=== PATIENT | male | born 1990 | race Caucasian/White ===

== ENCOUNTER 2023-09-07 21:54 | Emergency (ER) | payer BC, SELFPAY ==
[2023-09-07 21:55] VITALS: BP 150/108
--- NOTE | 2023-09-07 23:21 | ED.GENMED ---
History of Present Illness
<SARAVANAN Arzate - Last Filed: 09/07/23 23:30>
General
Chief Complaint: Ear Problem
Source: patient
Exam Limitations: none
Time Seen by Provider: 09/07/23 23:09
Travel History
Have you had any contact with someone who has COVID-19?: No
Do you have any symptoms of coronavirus? Fever > 100 degrees, chills, cough, shortness of breath, sore throat, loss of taste or smell, muscle aches, or headache?: No
History of Present Illness
History of Present Illness:
This is a 33 year old male that comes in with c/o right ear pain. States that he had a pimple in the outer ear and this continued to get worse. States that this started 4 days ago. Denies any fever,chills, nausea, vomiting, diarrhea, headache,
dizziness.
Past History
<SARAVANAN Arzate - Last Filed: 09/07/23 23:30>
Past History
ED Past Medical History: HTN and NIDDM
ED Past Surgical History: None
Social History
Tobacco: Non-smoker
Alcohol: None
Drug: None
Personal:
Living: with family
Review of Systems
<SARAVANAN Arzate - Last Filed: 09/07/23 23:30>
Review of Systems
All Other Systems: ROS reviewed and negative except as documented in HPI and ROS
Constitutional: Reports no symptoms; Denies fever or chills
EENT: Reports other (right ear pain)
Respiratory: Reports no symptoms
Cardiac: Reports no symptoms
ABD/GI: Reports no symptoms
: Reports no symptoms
Musculoskeletal: Reports no symptoms
Skin: Reports no symptoms
Neurological: Reports no symptoms; Denies dizzy or headache
Psychiatric: Reports no symptoms
Phy Exam
<SARAVANAN Arzate - Last Filed: 09/07/23 23:30>
General Physical Exam
General Presentation: well appearing and no apparent distress
General age: appears stated age
General Skin: warm and dry
General Habitus: normal
General Mental: alert
General Hydration: appears well hydrated
ENT Exam
ENT Exam: pharynx normal, neck supple and other (right external ear canal just at the opening there is a pimple like appears that is swollen and just about ready to open. )
Eye Exam
Eye Exam: EOMI
Musculoskeletal Exam
Musculoskeletal Exam: full ROM
Skin Exam
Skin Exam: normal color, warm/dry, no petechia and other (external ear slightly red)
Psychiatric Exam
Psychiatric Exam: normal mood/affect
Course
<SARAVANAN Arzate - Last Filed: 09/07/23 23:30>
Orders/Labs/Results
Orders:
Orders
09/07/23 23:20
Doxycycline [Vibramycin] 100 mg PO NOW STA
Vital Signs
Initial and Last Documented VS:
Initial Vital Signs
Temp Pulse Resp BP Pulse Ox
98 F 92 20 150/108 98
09/07/23 21:55 09/07/23 21:55 09/07/23 21:55 09/07/23 21:55 09/07/23 21:55
Last Documented Vital Signs
Temp Pulse Resp BP Pulse Ox
98 F 92 20 150/108 98
09/07/23 21:55 09/07/23 21:55 09/07/23 21:55 09/07/23 21:55 09/07/23 21:55
<Kelli Philippe DO - Last Filed: 09/07/23 23:33>
Orders/Labs/Results
Orders:
Orders
09/07/23 23:20
Doxycycline [Vibramycin] 100 mg PO NOW STA
Vital Signs
Initial and Last Documented VS:
Initial Vital Signs
Temp Pulse Resp BP Pulse Ox
98 F 92 20 150/108 98
09/07/23 21:55 09/07/23 21:55 09/07/23 21:55 09/07/23 21:55 09/07/23 21:55
Last Documented Vital Signs
Temp Pulse Resp BP Pulse Ox
98 F 92 20 150/108 98
09/07/23 21:55 09/07/23 21:55 09/07/23 21:55 09/07/23 21:55 09/07/23 21:55
<SARAVANAN Arzate - Last Filed: 09/07/23 23:30>
MDM/Problems Addressed
Differential Diagnosis Includes:
Otitis externa
MDM/Problems Addressed:
This is a 33 year old male that comes in with c/o a 4 day history of right ear pain. States that he had a pimple and this continue to get larger.
Will have patient use Warm compresses or a heating pad and will place on antibiotics. Patient to follow up with the PCP. Return with fever, redness or any other concerns.
Chronic conditions affecting care: DM
Acute Exacerbation and/or Progression of Chronic Illness:
NA
<SARAVANAN Arzate - Last Filed: 09/07/23 23:30>
*Pulse Oximetry
Patient hypoxic: no
*EKG
Interpreted by ED Provider?: NA
Rate: EKG- N/A
*Consumer Marketing Specialist Interpretation
Rate: Consumer Marketing Specialist- N/A
*Critical Care Note
Total Time (30-74mins, 75-104mins- exclusive of procedures): Not Applicable
ED Attending Note
<SARAVANAN Arzate - Last Filed: 09/07/23 23:30>
-
Portions of this chart may have been created with voice recognition software.� Occasional wrong word or��sound alike� substitutions may have occurred due to the inherent limitations of voice recognition software.
<Kelli Philippe DO - Last Filed: 09/07/23 23:33>
ED Attending Note
Patient seen and examined by attending physician: Yes
I performed the substantive portion of visit, reviewed & personally made and approve the management plan that is documented in note by myself or VENKAT.: Yes
I performed a history and physical exam of patient and discussed management with resident, I reviewed resident's note and agree with documented findings and plan of care.: Yes
ED Attending Note:
33-year-old gentleman presents with several day history of focal pain and swelling posterior/superior aspect of the right ear tragus. He does admit to frequent earbud wearing and had similar but less painful inflammation sometime ago that resolved
on its own.
He has history of [id number] diabetes maintained on metformin. Other than this no history of immunocompromise. No known prior history of MRSA infections.
Exam remarkable for focal skin abscess posterior superior aspect of the tragus that is focally erythematous, fluctuant, minimal central desquamation and scant drainage from central aspect. There is no surrounding cellulitis, external canal is
otherwise clear.
Focal skin abscess to outer external ear canal on the right likely related to ear buds. Will treat with a course of Bactrim for coverage of potential MRSA.
Abscess is already beginning to drain thus we will hold off on further incision and drainage and treat conservatively with local warm compresses.
Tylenol versus ibuprofen as needed for pain.
Return precautions discussed.
Discharge Plan
Departure
Patient Disposition: Home (Routine Discharge)
Date of Disposition: 09/07/23
Time of Disposition: 23:24
Patient with high blood pressure during this ER visit?: Yes
Condition: Good
Covid-19: Not Applicable
Discharge Problem:
Infection of right ear canal
Instructions: Outer Ear Infection (DC), BLOOD PRESSURE
Prescriptions:
New
doxycycline hyclate 100 mg capsule
100 mg PO BID Qty: 19 0RF
No Action
metformin
2 tab PO DAILY
Patient Comments:
Patient does not know the dose
lisinopril 20 mg Tablet
20 mg PO DAILY
clindamycin HCl 150 mg capsule
450 mg PO TID 10 Days Qty: 90 0RF
Activity Restrictions/Additional Instructions:
As discussed, this looks to be a pimple that became infected. It is just about ready to open. Please use warm compresses or a heating pad to the ear as this will help this to drain. You have been started on an antibiotic and give your first dose
here. You have had a prescription sent to your Pharmacy. Please take as directed. Please follow up with the family doctor for recheck. IF YOU HAVE INCREASED PAIN OR SWELLING, FEVER, OR YOU HAVE ANY OTHER CONCERNS PLEASE RETURN TO THE EMERGENCY ROOM
Interventions
Interventions:
*Risk Screen - Suicide Last Done: 09/07/23 21:55
*General Assessment Last Done: 09/07/23 23:23
*Neglect/Abuse Screening Last Done: 09/07/23 21:55
ED- Fall Risk Assessment Last Done: 09/07/23 23:23
*ED COVID-19 Vaccine History Last Done: 09/07/23 23:23
[2023-09-07 23:23] VITALS: BMI 28.0
[2023-09-07] MEDS: VIBRAMYCIN 100 MG PO (23:33)
[2023-09-07 23:47] VITALS: BP 143/97
== END 2023-09-07 23:48 | disposition home or self-care (01) ==
LOC: EMR 21:54
PROVIDERS: EMERGENCY PHYSICIAN Emergency Medicine; FAMILY PHYSICIAN Family Medicine
DX: H60.391 Other infective otitis externa, right ear (principal); E11.9 Type 2 diabetes mellitus without complications; I10 Essential (primary) hypertension; Z79.84 Long term (current) use of oral hypoglycemic drugs
CPT/HCPCS: 99283

== ENCOUNTER 2024-06-16 02:38 | Emergency (ER) | payer BC, SELFPAY ==
[2024-06-16 02:40] VITALS: BP 143/98
--- NOTE | 2024-06-16 07:18 | ED.GENMED ---
History of Present Illness
General
Chief Complaint: Eye Problems
Source: patient
Exam Limitations: none
Time Seen by Provider: 06/16/24 06:36
History of Present Illness
History of Present Illness:
Left eye irritation 4 hours. No pain with blinking. No foreign body sensation. No visual issues. Light does bother his eyes.
Past History
Past History
ED Past Medical History: HTN and NIDDM
ED Past Surgical History: None
Social History
Tobacco: Non-smoker
Alcohol: None
Drug: None
Personal:
Living: with family
Review of Systems
Review of Systems
All Other Systems: Not applicable
Phy Exam
Physical Exam
Physical Exam:
General: Nontoxic appearing in no distress
Skin: Warm and dry, no rash
Neuro: Alert, nontoxic, grossly nonfocal
Psychiatric: Good eye contact and appropriate
Orbits: Orbits grossly normal. No eyelid swelling. No pain with eye motion. No periorbital swelling or erythema. No eye drainage. Diffuse conjunctival injection. Slit-lamp exam shows mild fat layer and cell. Mild KP more towards the inferior
aspect of the eye between 4 and 7:00. Small more discrete area near 7:00. This extends into the conjunctiva. No dendrite.
Course
Orders/Labs/Results
Orders:
Orders
06/16/24 06:58
Visual Acuity- Treatment ONCE
06/16/24 09:14
Ofloxacin [Ocuflox] See Dose Instructions OPHTH QID
06/16/24 10:00
Cyclopentolate 2% [Cyclogyl 2% Eye Drops] See Dose Instructions OPHTH ONCE ONE
06/16/24 13:00
Ofloxacin [Ocuflox] See Dose Instructions OPHTH QID
Vital Signs
Initial and Last Documented VS:
Initial Vital Signs
Temp Pulse Resp BP Pulse Ox
97.9 F 105 16 143/98 99
06/16/24 02:40 06/16/24 02:40 06/16/24 02:40 06/16/24 02:40 06/16/24 02:40
Last Documented Vital Signs
Temp Pulse Resp BP Pulse Ox
97.9 F 88 16 136/77 98
06/16/24 02:40 06/16/24 09:00 06/16/24 09:00 06/16/24 09:00 06/16/24 09:00
MDM/Problems Addressed
Differential Diagnosis Includes:
KP/corneal defect with mild iritis. Contacted ophthalmology for plan
*Critical Care Note
Total Time (30-74mins, 75-104mins- exclusive of procedures): Not Applicable
Update Note
Update Note:
Unable to contact ophthalmology who usually is very good about contacting. I am comfortable that she will follow-up closely with this patient. Patient states blurry vision but can count fingers and read my badge very easily with the left eye.
Will start antibiotic drops. Hold on cycloplegics. Iritis component is minimal
ED Attending Note
-
Portions of this chart may have been created with voice recognition software.� Occasional wrong word or��sound alike� substitutions may have occurred due to the inherent limitations of voice recognition software.
Discharge Plan
Departure
Patient Disposition: Home (Routine Discharge)
Date of Disposition: 06/16/24
Time of Disposition: 08:47
Patient with high blood pressure during this ER visit?: Yes
Discharge Problem:
Punctate keratopathy/corneal injury, Iritis
Prescriptions:
No Action
metformin
2 tab PO DAILY
Patient Comments:
Patient does not know the dose
lisinopril 20 mg Tablet
20 mg PO DAILY
clindamycin HCl 150 mg capsule
450 mg PO TID 10 Days Qty: 90 0RF
doxycycline hyclate 100 mg capsule
100 mg PO BID Qty: 19 0RF
Referrals:
Bernardo,Newton S., DO [Family Provider] -
Lyric Moulton MD [Active] - Tomorrow
Stand Alone Forms: Return to Work
Activity Restrictions/Additional Instructions:
Use drops in left eye every 2-3 hours
Call the production truck driver today for close follow-up
Return sooner with increased pain increased visual issues or any other concerning symptoms
Interventions
Interventions:
*Risk Screen - Suicide Last Done: 06/16/24 02:40
*General Assessment Last Done: 06/16/24 02:40
*Neglect/Abuse Screening Last Done: 06/16/24 02:40
ED- Fall Risk Assessment Last Done: 06/16/24 03:53
*ED COVID-19 Vaccine History Last Done: 06/16/24 02:40
*Nursing Disposition Last Done: 06/16/24 09:40
Discharge Date and Time
Discharge Date/Time: 06/16/24 09:44
Print Language: FRISIAN
[2024-06-16 09:00] VITALS: BP 136/77
[2024-06-16] MEDS: OCUFLOX 2 DROP OPHTH (09:30)
[2024-06-16] MEDS: CYCLOGYL 2% EYE DROPS 1 DROP OPHTH (09:31)
== END 2024-06-16 09:44 | disposition home or self-care (01) ==
LOC: EMR 02:38
PROVIDERS: EMERGENCY PHYSICIAN Emergency Medicine; FAMILY PHYSICIAN Family Medicine
DX: H20.9 Unspecified iridocyclitis (principal); H18.9 Unspecified disorder of cornea; S05.8X2A Other injuries of left eye and orbit, initial encounter; X58.XXXA Exposure to other specified factors, initial encounter; I10 Essential (primary) hypertension
CPT/HCPCS: 99283

== ENCOUNTER 2024-07-10 07:34 | Inpatient (IN) | payer BC, SELFPAY ==
[2024-07-09 19:21] VITALS: BMI 24.3
[2024-07-09 19:24] VITALS: BP 131/91
[2024-07-09 19:47] LABS: % Basophils 0.1 % (0-2); % Immature Granulocytes 0.3 % (0-0.5); % Lymphocytes 13.2 % (20.5-51.1); % Monocytes 9.5 % (1.7-9.3); % Neutrophils 76.9 % (42.2-75.2); Absolute Lymphocytes 1.6 10^3/uL (1.2-3.4); Absolute Monocytes 1.1 10^3/uL (0.1-0.6); Absolute Neutrophils 9.2 10^3/uL (1.4-6.5); Hematocrit 46.3 % (39.0-52.0); Hemoglobin 15.5 g/dL (13.0-18.0); Mean Corp Hgb Conc. 33.5 g/dL (33.0-37.0); Mean Corpuscular Hgb 26.9 pg (27.0-31.0); Mean Corpuscular Volume 80.4 fL (80.0-94.0); Mean Platelet Volume 9.8 fL (7.4-10.4); Nucleated Red Blood Cells % 0 % (-); Platelet Count 221 10^3/uL (130-400); Red Blood Cell Count 5.76 10^6/uL (4.70-6.10); Red Cell Dist. Width 12.5 % (11.5-14.5); White Blood Cell Count 11.9 10^3/uL (4.8-10.8)
[2024-07-09 20:02] LABS: ALT (SGPT) 19 U/L (0-50); AST (SGOT) 18 U/L (17-59); Albumin 4.4 g/dl (3.5-5.0); Alkaline Phosphatase 94 U/L (38-126); Blood Urea Nitrogen 6 mg/dl (9-20); Calcium 8.9 mg/dl (8.4-10.2); Carbon Dioxide 18 mmol/L (22-30); Chloride 96 mmol/L (98-107); Glucose 346 mg/dl (70-99); Potassium 4.2 mmol/L (3.5-5.1); Sodium 133 mmol/L (135-145); Total Bilirubin 1.1 mg/dl (0.2-1.3); Total Protein 7.6 g/dl (6.3-8.2); eGFR > 60.00
[2024-07-09 20:09] LABS: COVID-19 Antigen Negative (Negative)
--- NOTE | 2024-07-09 23:44 | ED.GENMED ---
History of Present Illness
General
Chief Complaint: Cold/Flu/URI Symptoms
Source: patient
Exam Limitations: none
Time Seen by Provider: 07/09/24 23:31
History of Present Illness
History of Present Illness:
Cough congestion for 1 week. Myalgias. Low-grade fevers. Some shortness of breath. Some throat discomfort. Daughter with similar symptoms
Past History
Past History
ED Past Medical History: HTN and NIDDM
ED Past Surgical History: None
Social History
Tobacco: Non-smoker
Alcohol: None
Drug: None
Personal:
Living: with family
Review of Systems
Review of Systems
All Other Systems: Not applicable
Constitutional: Reports fever
Respiratory: Reports cough; Denies hemoptysis
Cardiac: Denies chest pain
Phy Exam
Physical Exam
Physical Exam:
GENERAL: Alert and oriented in no apparent distress
EYE: Orbits normal.
NECK: Supple. No drooling. Speech normal
CARDIAC: Regular rate and rhythm without any obvious murmurs.
LUNGS: Coarse rhonchi in the bases. No respiratory distress
ABDOMEN: Soft, without focal tenderness or distention
NEUROLOGICAL: Alert and oriented , grossly non-focal
SKIN: Warm and dry, no rash or lesion, no discoloration, skin intact.
MUSCULOSKELETAL: No edema,no deformity.Good color
PSYCH: Normal and appropriate interaction.
Course
Orders/Labs/Results
Orders:
Orders
07/09/24 19:26
CR Chest - 2 Views Urgent
Comment:
Reason For Exam: cough/congestion
07/09/24 19:39
COVID-19 Antigen Urgent
Source: Nasal Swab
Complete Blood Count/With Diff Urgent
Comprehensive Metabolic Panel Urgent
Influenza A+B Rapid Molecular Urgent
ROBERTO Source: Nasal Swab
Specimen Description:
Date Specimen was Collected: 07/09/24
Time Specimen was Collected: 19:27
Rapid Strep Group A Urgent
ROBERTO Source: Throat/Pharynx
Specimen Description:
Date Specimen was Collected: 07/09/24
Time Specimen was Collected: 19:27
Throat Culture [Throat Culture, Comprehensive] Urgent
ROBERTO Source: Throat/Pharynx
Specimen Description:
Date Specimen was Collected: 07/09/24
Time Specimen was Collected: :
07/09/24 23:44
Albuterol Nebs [Ventolin Nebules] 2.5 mg INH R NOW STA
Doxycycline [Vibramycin] 100 mg PO NOW STA
07/09/24 23:56
0.9% Sodium Chloride 1000 ml [Nss] 1,000 ml IV BOLUS
07/09/24 23:59
B-Hydroxybutyrate Urgent
07/10/24 01:16
BMP [Basic Metabolic Panel] Urgent
07/10/24 01:49
0.9% Sodium Chloride 1000 ml [Nss] 1,000 ml IV BOLUS
07/10/24 01:51
Bedside Glucose- Treatment Q1H
IV Insert/Care/Rem.- Treatment PRN
07/10/24 01:58
Reg Insulin 100 Units/100 ml [Novolin R Insulin Infusion] 100 units in 100 ml IV NOW
07/10/24 02:00
KCl 20 Meq/0.9%Sodchl 1000 ml [NSS with KCL 20 MEQ] 20 meq in 1,000 ml IV 250 mls/hr
07/10/24 02:04
KCl 20 Meq/0.9%Sodchl 1000 ml [NSS with KCL 20 MEQ] 20 meq in 1,000 ml IV 250 mls/hr
07/10/24 02:07
Basic Metabolic Panel Q2H
07/10/24 02:48
Lactic Acid Stat
Venous Blood Gas Stat
%Oxygen/Room Air: 21
07/10/24 03:01
Admit/Transfer Patient As Directed
Co-Sign Provider:
Level of Care: Observation services
Assign to:: ICU
Physician / Group: hospitalist
Diagnosis: DKA
Reason for Hospitalization: DKA
Code Status As Directed
Resuscitation Status: Full Code
PRN Pain Medication Management As Directed
May give lesser potent ordered pain med per pt: Yes
preference::
Protocol:: Medication orders for pain may be administered in a
manner that supports deferring to patient preference
when the pt is:
- Requesting an ordered lesser potent pain medication.
Least to most potent pain medications are defined
as: acetaminophen < NSAID < tramadol < opioids
(morphine, oxycodone, hydromorphone).
- Requesting a lesser dose of the same medication IF
ORDERED.
- Requesting a less intrusive route of administration
if both routes are prescribed by the provider (PO <
IV).
07/10/24 04:16
Acetaminophen [Tylenol] 650 mg PO Q6HPRN PRN
KCl 20 Meq/D5.45%Sodchl 1000ML [D5/0.45%NSS with KCL 20 MEQ] 20 meq in 1,000 ml IV 150 mls/hr
Ondansetron Injectable [Zofran] 4 mg IV Q6HPRN PRN
Reg Insulin 100 Units/100 ml [Novolin R Insulin Infusion] 100 units in 100 ml IV PER PROTOCOL
Initial dose in units/hr, then titrate:: 3
07/10/24 04:16
Activity As Directed
Activity Level: As Tolerated
Bedside Glucose Monitoring As Directed
Frequency: Q1H
Intake/ Output As Directed
Frequency: Per unit guidelines
Notify MD As Directed
Notify physician if: Nurse to contact provider when glucose reaches 250 to obtain orders for D5 0.45 NaCl
Vital Signs As Directed
Frequency: Per unit guidelines
DX Deep Vein Thrombosis Video Routine
07/10/24 04:40
Consult Stoner Out [Stoner Out Consult] Routine
Consulting Provider: Jasen Bassett
Was physician already notified: Yes
Reason for consult: DKA
07/10/24 05:13
PT/INR [Prothrombin Time] Routine
PTT Routine
07/10/24 Breakfast
NPO
Allow oral meds: Yes
Allow clear liquids: Sips of Clears
NPO with Ice Chips: Yes
07/10/24 06:35
Basic Metabolic Panel Routine
Comment: REDRAW
Cardiovascular Evaluation Routine
Glycohemoglobin (HgbA1c) Routine
07/10/24 07:28
Level of Care Change As Directed
Level of Care: Inpatient admission
Reason for Hospitalization: DKA, insulin drip
Expected length of stay greater than two midnights?: Yes
ELOS- Estimated Length of Stay in days: 3
I certify the patient meets the requirements for IP care: Yes
07/10/24 12:00
Doxycycline Hyclate [Vibramycin] 100 mg 0.9% Sodium Chloride 250 ml [Nss] 250 ml IV Q12H
07/10/24 18:00
Enoxaparin Sodium [Lovenox] 40 mg SC QPM
Abnormal Lab Results
07/09/24 07/09/24 07/10/24
19:39 23:59 01:16
WBC 11.9 H 10^3/uL
(4.8-10.8)
MCH 26.9 L pg
(27.0-31.0)
Absolute Neuts (auto) 9.2 H 10^3/uL
(1.4-6.5)
Absolute Monos (auto) 1.1 H 10^3/uL
(0.1-0.6)
Neutrophils % 76.9 H %
(42.2-75.2)
Lymphocytes % 13.2 L %
(20.5-51.1)
Monocytes % 9.5 H %
(1.7-9.3)
PT
APTT
VBG pH
VBG pCO2
VBG pO2
VBG HCO3
Sodium 133 L mmol/L 132 L mmol/L
(135-145) (135-145)
Chloride 96 L mmol/L
(98-107)
Carbon Dioxide 18 L mmol/L 11 L* mmol/L
(22-30) (22-30)
BUN 6 L mg/dl 5 L mg/dl
(9-20) (9-20)
Creatinine 0.5 L mg/dL 0.4 L mg/dL
(0.7-1.3) (0.7-1.3)
Glucose 346 H mg/dl 274 H mg/dl
(70-99) (70-99)
Hemoglobin A1c
Calcium 8.2 L mg/dl
(8.4-10.2)
B-Hydroxybutyrate 4.09 H mmol/L
(0.02-0.27)
POC Glucose
07/10/24 07/10/24 07/10/24
01:19 02:07 02:48
WBC
MCH
Absolute Neuts (auto)
Absolute Monos (auto)
Neutrophils %
Lymphocytes %
Monocytes %
PT
APTT
VBG pH 7.29 L
(7.32-7.43)
VBG pCO2 29 L mmHg
(35-48)
VBG pO2 107 H mmHg
(30-50)
VBG HCO3 13.9 L mmol/L
(22-27)
Sodium 134 L mmol/L
(135-145)
Chloride
Carbon Dioxide 10 L* mmol/L
(22-30)
BUN 5 L mg/dl
(9-20)
Creatinine 0.4 L mg/dL
(0.7-1.3)
Glucose 279 H mg/dl
()
Hemoglobin A1c
Calcium
B-Hydroxybutyrate
POC Glucose 261 H mg/dl
()
07/10/24 07/10/24 07/10/24
02:56 04:22 05:07
WBC
MCH
Absolute Neuts (auto)
Absolute Monos (auto)
Neutrophils %
Lymphocytes %
Monocytes %
PT
APTT
VBG pH
VBG pCO2
VBG pO2
VBG HCO3
Sodium
Chloride
Carbon Dioxide
BUN
Creatinine
Glucose
Hemoglobin A1c
Calcium
B-Hydroxybutyrate
POC Glucose 234 H mg/dl 170 H mg/dl 173 H mg/dl
() (-) (-99)
07/10/24 07/10/24 07/10/24
05:13 06:13 06:35
WBC
MCH
Absolute Neuts (auto)
Absolute Monos (auto)
Neutrophils %
Lymphocytes %
Monocytes %
PT 22.2 H Sec
(11.4-14.6)
APTT 48.9 H Sec
(23.4-35.0)
VBG pH
VBG pCO2
VBG pO2
VBG HCO3
Sodium 134 L mmol/L
(135-145)
Chloride
Carbon Dioxide 10 L* mmol/L
(22-30)
BUN 3 L mg/dl
(9-20)
Creatinine 0.3 L mg/dL
(0.7-1.3)
Glucose 268 H mg/dl
(70-99)
Hemoglobin A1c 14.8 H %
(4.0-5.6)
Calcium 8.1 L mg/dl
(8.4-10.2)
B-Hydroxybutyrate
POC Glucose 237 H mg/dl
(70-99)
07/10/24
06:56
WBC
MCH
Absolute Neuts (auto)
Absolute Monos (auto)
Neutrophils %
Lymphocytes %
Monocytes %
PT
APTT
VBG pH
VBG pCO2
VBG pO2
VBG HCO3
Sodium
Chloride
Carbon Dioxide
BUN
Creatinine
Glucose
Hemoglobin A1c
Calcium
B-Hydroxybutyrate
POC Glucose 276 H mg/dl
(70-99)
07/09/24 19:39
07/10/24 06:35
Vital Signs
Initial and Last Documented VS:
Initial Vital Signs
Temp Pulse Resp BP Pulse Ox
98.4 F 120 20 131/91 97
07/09/24 19:24 07/09/24 19:24 07/09/24 19:24 07/09/24 19:24 07/09/24 19:24
Last Documented Vital Signs
Temp Pulse Resp BP Pulse Ox
98.2 F 109 30 129/94 96
07/10/24 11:20 07/10/24 12:00 07/10/24 07:00 07/10/24 12:00 07/10/24 09:00
MDM/Problems Addressed
Differential Diagnosis Includes:
No respiratory distress. Pulse ox is good. Too late for Tamiflu which has questionable benefit to begin with. However with questionable infiltrate in the base will cover with doxycycline for secondary infection. Albuterol inhaler if the
nebulizer helps here.
*Radiology
Radiology exam reviewed: radiology read reviewed (Atelectasis versus infiltrate)
*Pulse Oximetry
Patient hypoxic: no
*Critical Care Note
Total Time (30-74mins, 75-104mins- exclusive of procedures): 45
Data Reviewed
Review of Other/Old Records Reveals: Labs and Testing
Update Note
Update Note:
Repeat BMP showed a dropping bicarb. Clearly this is a DKA. Patient was given second liter of fluid. Baseline fluids with potassium. Insulin drip without bolus given blood sugar. Referred to hospitalist. Patient had to be convinced to stay.
ED Attending Note
-
Portions of this chart may have been created with voice recognition software.� Occasional wrong word or��sound alike� substitutions may have occurred due to the inherent limitations of voice recognition software.
Discharge Plan
Departure
Patient Disposition: Admit
Date of Disposition: 07/09/24
Time of Disposition: 23:46
Presentation/result/management discussed w/ accepting MD/DO: Hospitalist
Patient with high blood pressure during this ER visit?: Yes
Discharge Problem:
Influenza A, Possible secondary pneumonia, Hyperglycemia, DKA (diabetic ketoacidosis)
Interventions
Interventions:
*Risk Screen - Suicide Last Done: 07/10/24 00:09
*General Assessment Last Done: 07/09/24 19:24
*Neglect/Abuse Screening Last Done: 07/10/24 00:09
ED- Fall Risk Assessment Last Done: 07/09/24 23:37
*ED COVID-19 Vaccine History Last Done: 07/09/24 23:49
*Nursing Disposition Last Done: 07/10/24 00:28
ED- Pulmonary Assessment Last Done: 07/09/24 23:49
Discharge Date and Time
Discharge Date/Time: 07/10/24 04:19
[2024-07-09] MEDS: VIBRAMYCIN 100 MG PO (23:47)
[2024-07-09] MEDS: VENTOLIN NEBULES 2.5 MG INH (23:47)
[2024-07-09 23:50] VITALS: BP 145/102
[2024-07-09 23:58] VITALS: BP 144/95
[2024-07-10] VITALS (16 sets, daily range): BP systolic 117–151; BP diastolic 82–109; BMI 24.3
[2024-07-10] MEDS: NSS 1000 IV ×2 (00:07→02:04)
[2024-07-10 00:37] LABS: B-Hydroxybutyrate 4.09 mmol/L (0.02-0.27)
[2024-07-10 01:20] LABS: Glucose - Point of Care 261 mg/dl (70-99)
[2024-07-10 01:48] LABS: Blood Urea Nitrogen 5 mg/dl (9-20); Calcium 8.2 mg/dl (8.4-10.2); Carbon Dioxide 11 mmol/L (22-30); Chloride 101 mmol/L (98-107); Estimated Creatinine Clearance > 125 ml/min; Glucose 274 mg/dl (70-99); Sodium 132 mmol/L (135-145); eGFR > 60.00
[2024-07-10] MEDS: NSS with KCL 20 MEQ 1000 IV (02:18)
[2024-07-10] MEDS: NOVOLIN R INSULIN INFUSION 100 IV (02:19)
--- NOTE | 2024-07-10 02:51 | HPS.HSE ---
Family Physician
-
Family Physician: Newton Bernardo
Chief Complaint
-
Flulike symptoms
History of Present Illness
This is a 34-year-old with past medical history of jak-xdrcdde-icggftbur diabetes who presents to the emergency department with flulike symptoms ongoing for approximately 6 days.
Patient reports cough with chest tightness. Reports pleuritic pain when coughing. Cough was initially productive now mostly dry. Reports mild nausea but no vomiting. Denies diarrhea. Reports myalgia. He also reports some shakes. Denies having
fevers at home. Denies dyspnea on exertion. Patient reports decreased p.o. intake.
Patient reports that he started taking metformin after being noncompliant with medications recently. He reports history of DKA several years ago at [facility].
In the emergency department he was afebrile, he was tachycardic to the 120s, blood pressure was stable at 135/97. Respiratory was 20. Satting 96% on room air. COVID test was negative.
That was positive. Chest x-ray shows left lower lobe subpleural consolidations consistent with pneumonia. Patient's CBC was unremarkable. His labs were notable for a bicarb of 11 with a anion gap of 20. Beta-hydroxybutyrate was elevated at 4.0.
Glucose was initially 300s now 260.
Medical History
Past Medical History
Past Medical History: Reports NIDDM
Past Surgical History: Reports None
Social History
Tobacco: Non-smoker
Alcohol: None
Drug: None
Personal:
Living: With Family
Employment: Employed
Family History
Family History: Diabetes
Allergies / Home Medications
Allergies reflects when Allergies were last updated in [facility].
Home Medications with original date entered in [employer]
Allergy/Medication List:
Allergies
Allergy/AdvReac Type Severity Reaction Status Date / Time
No Known Allergies Allergy Verified 07/09/24 19:24
Home Medications
metformin 2 tab PO DAILY 01/25/22
lisinopril 20 mg tablet 20 mg PO DAILY 01/26/22
clindamycin HCl 150 mg capsule 450 mg (3 x 150 mg) PO TID 10 days #90 caps 04/02/23
doxycycline hyclate 100 mg capsule 100 mg PO BID ENT infection #19 caps 09/07/23
albuterol sulfate 90 mcg/actuation aerosol inhaler (Ventolin HFA) 2 inh inhalation Q4H PRN shortness of breath or wheezing #6.7 grams 07/09/24
doxycycline hyclate 100 mg capsule 100 mg PO BID 10 days #20 caps 07/09/24
Review of Systems
-
History Source: Patient
Constitutional: Reports Chills
EENT: Reports No Symptoms
Respiratory: Reports Cough
Cardiac: Reports No Symptoms
Abdomen/GI: Reports No Symptoms
: Reports No Symptoms
Musculoskeletal: Reports Muscle Pain
Skin: Reports No Symptoms
Neurological: Reports No Symptoms
Endocrine: Reports No Symptoms
Hematologic/Lymphatic: Reports No Symptoms
Psych: Reports No Symptoms
Physical Exam
Vital Signs
Vital Signs
Temp Pulse Resp BP Pulse Ox
98.4 F 120 20 135/97 96
07/09/24 19:24 07/09/24 19:24 07/09/24 19:24 07/10/24 02:03 07/10/24 02:01
Physical Exam
General: Well Developed, Well Nourished and No Apparent Distress
HEENT: NormoCephalic, Anicteric, Moist mucous membranes and Atraumatic
Respiratory: Clear
Cardiac: S1/S2, Regular Rhythm and Tachycardia
GI: Soft, Non Tender, Non Distended and Normal Bowel Sounds
Rectal: Deferred by Provider
Genito-urinary: Deferred by me
Musculoskeletal: No Clubbing, No Cyanosis and No Edema
Skin: Warm
Neuro: AO x 3 and Nonfocal/grossly intact
Hematologic/Lymphatic: No Lymphadenopathy
Psych: Calm
Laboratory Results
-
07/09/24 19:39
Laboratory Results
Total Bilirubin 1.1 mg/dl (0.2-1.3) 07/09/24 19:39
AST 18 U/L (17-59) 07/09/24 19:39
ALT 19 U/L (0-50) 07/09/24 19:39
Alkaline Phosphatase 94 U/L (38-126) 07/09/24 19:39
Data Reviewed
-
Diagnostic Radiology: Image Personally Visualized and interpreted
Lab Data: Labs Reviewed by me
Old Records: Reviewed
Impression/Plan
-
IMPRESSION:
34 y.o with h/o type II diabetes currently on metformin presents to ED with influenza, tachycardia and anion gap acidosis with elevated ketones c/w DKA. Has a LLL pneumonia on Xray but minimal pulmonary symptoms currently.
PLAN:
DKA - Atypical but mild with glucose of 260 and ag of 20, bicarb of 11. bHB was 4.
- admit to icu
- started insulin gtt protocol in ED
- IV fluids, K supplementation, dextrose per protocol
- antiemetics and antipyretics
- check a1c in am
Influenza -
- 6 days of symptoms. No indication for tamiflu
- supportive care
Pneumonia - possible LLL infiltrate on xray
- doxycycline for post-viral pneumonia for now
- check procalcitonin
DVT PPX - lovenox sq
Code status - Full code
[2024-07-10 02:53] LABS: Blood Urea Nitrogen 5 mg/dl (9-20); Calcium 8.5 mg/dl (8.4-10.2); Carbon Dioxide 10 mmol/L (22-30); Chloride 102 mmol/L (98-107); Estimated Creatinine Clearance > 125 ml/min; Glucose 279 mg/dl (70-99); Potassium 3.9 mmol/L (3.5-5.1); Sodium 134 mmol/L (135-145); eGFR > 60.00
[2024-07-10 02:57] LABS: Glucose - Point of Care 234 mg/dl (70-99)
[2024-07-10 03:00] LABS: Venous Blood Gas B.E. -11.2 mmol/L (-4 to +4); Venous Blood Gas HCO3 13.9 mmol/L (22-27); Venous Blood Gas O2 Sat % 96.4 %; Venous Blood Gas pCO2 29 mmHg (35-48); Venous Blood Gas pH 7.29 (7.32-7.43); Venous Blood Gas pO2 107 mmHg (30-50)
[2024-07-10 03:24] LABS: Lactic Acid 0.8 mmol/L (0.7-2.0)
[2024-07-10 04:34] LABS: Glucose - Point of Care 170 mg/dl (70-99)
[2024-07-10] MEDS: D5/0.45%NSS with KCL 20 MEQ 1000 IV ×2 (05:01→09:10)
[2024-07-10 05:18] LABS: Glucose - Point of Care 173 mg/dl (70-99)
[2024-07-10 05:48] LABS: INR 1.93; PT 22.2 Sec (11.4-14.6)
[2024-07-10 05:49] LABS: APTT 48.9 Sec (23.4-35.0)
[2024-07-10 06:24] LABS: Glucose - Point of Care 237 mg/dl (70-99)
[2024-07-10 07:07] LABS: Glucose - Point of Care 276 mg/dl (70-99)
--- NOTE | 2024-07-10 07:13 | PTCARENOTE ---
Pt admitted to ICU from ED around 0420. HR SR/ST on telemetry. Insulin gtt initially running at 3.41u/hr on admission. Blood sugar 170, dose adjusted based on order. COMMERCIAL PROJECT MANAGER Bhaskar Varela at bedside, D5 .45NS with 20meq K initiated based on order. Pt
belongings w/ pt. Pt oriented to unit. See physical assessment.
[2024-07-10 07:23] LABS: Blood Urea Nitrogen 3 mg/dl (9-20); Calcium 8.1 mg/dl (8.4-10.2); Carbon Dioxide 10 mmol/L (22-30); Chloride 106 mmol/L (98-107); Estimated Creatinine Clearance > 125 ml/min; Glucose 268 mg/dl (70-99); HDL Cholesterol 23 mg/dl; LDL Cholesterol, Calculated 132 mg/dl; Potassium 4.2 mmol/L (3.5-5.1); Sodium 134 mmol/L (135-145); Total Cholesterol 181 mg/dl (50-199); Triglyceride 131 mg/dl (10-149); Very Low Density Lipoprotein 26 mg/dl (0-30); eGFR > 60.00
--- NOTE | 2024-07-10 07:30 | W.PN.HOSP.TC ---
Addendum entered and electronically signed by Radha Pillai MD 07/10/24 14:37:
I saw and evaluated the patient independently. I reviewed the resident�s note and agree with findings and plan as documented by Dr. Masters.
GENERAL: well developed, well nourished, male in no apparent distress
HEENT: NC/AT
HEART: regular rate and rhythm, +S1, +S2
LUNGS : clear to auscultation bilaterally
ABDOM: soft, nontender, nondistended, + bowel sounds
EXT: no cyanosis, clubbing, or edema
NEUROLOGIC: grossly intact
DKA - pt very likely type 1 and will need insulin at discharge--with glucose of 346 and AG of 19, bicarb of 11. beta hydroxybutyrate was 4---cont insulin drip for now--IVF--replete lytes as needed--HGB A1C= 14 (not controlled on metformin
alone-Anion gap not yet closed, current anion gap 15--Continue hourly Accu-Cheks
Influenza- 6 days of symptoms. No indication for tamiflu--likely triggered DKA--Continue supportive care
Pneumonia-- CXR: Possible mild left lower lobe pneumonia- doxycycline for post-viral pneumonia for now --procalcitonin negative
Patient states he wished to leave hospital today but Dr. Masters/Dr. Wren/myself explained to him that it would be unsafe medically to discharge him and that he would require continued further care until he is stabilized. Patient stated 'I will
remove all of my IV lines and walk out'. Explained to patient that it would be dangerous for him as he is still on IV insulin and blood work is not within normal limits and that he could . He states that he is aware/understands that it is
unsafe to leave hospital early and he will be leaving AGAINST MEDICAL ADVICE.
Original Note:
Today's Communication/Plan
-
Continue IV insulin, monitor BMP
Assessment / Plan
Assessment / Plan
IMPRESSION: This is a34 y.o with h/o type II diabetes currently on metformin presents to ED with influenza, tachycardia and anion gap acidosis with elevated ketones c/w DKA. Has a LLL pneumonia on Xray but minimal pulmonary symptoms currently.
PLAN:
#DKA - with glucose of 346 and AG of 19, bicarb of 11. beta hydroxybutyrate was 4.
-Continue insulin gtt
- IV fluids, K supplementation, dextrose per protocol
-Continue antiemetics and antipyretics
-HbA1c 14.8
-Anion gap not yet closed, current anion gap 15
Continue hourly Accu-Cheks
#Influenza
- 6 days of symptoms. No indication for tamiflu
-Continue supportive care
#Pneumonia
- CXR: Possible mild left lower lobe pneumonia
- doxycycline for post-viral pneumonia for now
- check procalcitonin
Patient states he wished to leave hospital today but I explained to him that it would be unsafe medically to discharge him and that he would require continued further care until he is stabilized. Patient stated 'I will remove all of my IV lines and
walk out'. Explained to patient that it would be dangerous for him as he is still on IV insulin and blood work is not within normal limits. He states that he is aware/understands that it is unsafe to leave hospital early and he will be leaving
AGAINST MEDICAL ADVICE.
DVT PPX - lovenox sq
Code status - Full code
Anticipated Discharge: 24 - 48 hours
Subjective/Interval History
-
Date of Service: July 10, 2024
Patient denies any symptoms of vomiting or abdominal pain, expresses his wishes to go home.
Objective Data
-
Labs:
Laboratory Results
07/09/24 07/10/24 07/10/24
19:39 01:16 02:07
WBC 11.9 H
Hgb 15.5
Hct 46.3
Plt Count 221
PT
INR
APTT
Sodium 133 L 132 L 134 L
Potassium 4.2 4.0 3.9
Chloride 96 L 101 102
Carbon Dioxide 18 L 11 L* 10 L*
BUN 6 L 5 L 5 L
Creatinine 0.5 L 0.4 L 0.4 L
Glucose 346 H 274 H 279 H
Calcium 8.9 8.2 L 8.5
Total Bilirubin 1.1
AST 18
ALT 19
Alkaline Phosphatase 94
07/10/24 07/10/24 07/10/24
04:03 05:13 06:00
WBC
Hgb
Hct
Plt Count
PT 22.2 H
INR 1.93
APTT 48.9 H
Sodium Cancelled Cancelled Cancelled
Potassium Cancelled Cancelled Cancelled
Chloride Cancelled Cancelled Cancelled
Carbon Dioxide Cancelled Cancelled Cancelled
BUN Cancelled Cancelled Cancelled
Creatinine Cancelled Cancelled Cancelled
Glucose Cancelled Cancelled Cancelled
Calcium Cancelled Cancelled Cancelled
Total Bilirubin
AST
ALT
Alkaline Phosphatase
07/10/24 07/10/24 07/10/24
06:35 08:00 09:00
WBC
Hgb
Hct
Plt Count
PT
INR
APTT
Sodium 134 L Cancelled Pending
Potassium 4.2 Cancelled Pending
Chloride 106 Cancelled Pending
Carbon Dioxide 10 L* Cancelled Pending
BUN 3 L Cancelled Pending
Creatinine 0.3 L Cancelled Pending
Glucose 268 H Cancelled Pending
Calcium 8.1 L Cancelled Pending
Total Bilirubin
AST
ALT
Alkaline Phosphatase
07/10/24 07/10/24 07/10/24
12:00 13:00 16:00
WBC
Hgb
Hct
Plt Count
PT
INR
APTT
Sodium Cancelled Pending Cancelled
Potassium Cancelled Pending Cancelled
Chloride Cancelled Pending Cancelled
Carbon Dioxide Cancelled Pending Cancelled
BUN Cancelled Pending Cancelled
Creatinine Cancelled Pending Cancelled
Glucose Cancelled Pending Cancelled
Calcium Cancelled Pending Cancelled
Total Bilirubin
AST
ALT
Alkaline Phosphatase
07/10/24
20:00
WBC
Hgb
Hct
Plt Count
PT
INR
APTT
Sodium Cancelled
Potassium Cancelled
Chloride Cancelled
Carbon Dioxide Cancelled
BUN Cancelled
Creatinine Cancelled
Glucose Cancelled
Calcium Cancelled
Total Bilirubin
AST
ALT
Alkaline Phosphatase
Vital Signs:
Vital Signs
Temp Pulse Resp BP Pulse Ox
99 F 109 30 127/90 96
07/10/24 07:22 07/10/24 07:00 07/10/24 07:00 07/10/24 07:00 07/10/24 07:00
I&O
07/09/24 07/10/24 07/11/24
06:59 06:59 06:59
Intake Total 152 / 152
Balance 152 / 152
--- NOTE | 2024-07-10 07:35 | PTCARENOTE ---
Received patient from fast food shift supervisor. Patient is AAOx4, states he has not followed up with insulin requirements. He did not receive a flu shot, family is also sick with flu at home. He is sinus tach on monitor, on room air, 95%. Patient is NPO,
states he has some nausea, walks into bathroom to urinate. Patient's skin is intact, he is still wearing his pants from home but reports no issues. Will review orders, is on insulin gtt and maintenance fluids. Will check sugars hourly.
[2024-07-10] MEDS: ZOFRAN 4 MG IV (07:47)
[2024-07-10 08:13] LABS: Glucose - Point of Care 331 mg/dl (70-99)
--- NOTE | 2024-07-10 08:46 | CON.INTV ---
Consultation
Consultation Request
Date/Time Consultation Requested: 07/10/2024
Date/Time Consultation Performed: 07/10/2024
Requesting Provider:
Performing Provider: Dr. Jasen Eric
Reason for Consultation: Diabetes ketoacidosis
Medical History
-
History of Present Illness:
34-year-old man with past medical history of diabetes who presented to the emergency room with flulike symptoms for approximately 6 days.
Reports some cough and chest tightness. Pleuritic type chest pain with ongoing coughing. Cough is mostly dry.
Denies any diarrhea or vomiting. Mild nausea. Generalized malaise. Has not been able to eat properly due to ongoing illness.
Patient has not been compliant with diabetes medication. Reports history of DKA at [facility].
Recently restarted taking metformin.
Chest x-ray was consistent with pneumonia. He was found to have anion gap metabolic acidosis with elevated beta hydroxybutyrate.
Glucose in the 300s
Admitted to the critical care unit for IV insulin drip and possibility of DKA.
Past Medical History
Past Medical History: Other (See assessment and plan)
Social History
Tobacco: Non-smoker
Alcohol: None
Drug: None
Personal:
Living: With Family
Employment: Employed
Family History
Family History: Reviewed & Not Pertinent
Allergies / Home Medications
Allergies
Allergy/AdvReac Type Severity Reaction Status Date / Time
No Known Allergies Allergy Verified 07/09/24 19:24
Home Medications
�Medication �Instructions �Recorded �Confirmed �Last Taken �Type
metformin 2 tab PO DAILY 01/25/22 01/25/22 Unknown History
lisinopril 20 mg tablet 20 mg PO DAILY 01/26/22 01/26/22 Unknown History
clindamycin HCl 150 mg capsule 450 mg (3 x 150 mg) PO TID 10 days 04/02/23 Unknown Rx
#90 caps
doxycycline hyclate 100 mg capsule 100 mg PO BID ENT infection #19 03/03/24 Unknown Rx
caps
albuterol sulfate 90 mcg/actuation 2 inh inhalation Q4H PRN shortness 07/09/24 Unknown Rx
aerosol inhaler (Ventolin HFA) of breath or wheezing #6.7 grams
doxycycline hyclate 100 mg capsule 100 mg PO BID 10 days #20 caps 07/09/24 Unknown Rx
Review of Systems
-
History Source: Patient
All other systems: Negative unless noted
Vitals / Labs / Diagnostic Testing
Vital Signs
Temp Pulse Resp BP Pulse Ox
99 F 112 30 130/87 95
07/10/24 07:22 07/10/24 07:29 07/10/24 07:00 07/10/24 07:29 07/10/24 07:39
Lab Data
07/09/24 19:39
07/10/24 20:00
Laboratory Results
07/10/24
05:13
PT 22.2 H
INR 1.93
APTT 48.9 H
Microbiology
07/09/24 19:39 Nasal Swab Influenza Types A & B (DARION) - Final
Influenza A Positive, NAAT
07/09/24 19:39 Throat/Pharynx Streptococcus Rapid Screen - Final
Rapid Strep Screen (Group A) Negative
Diagnostic Testing:
Physical Exam
-
HEENT: Normocephalic
Cardiovascular: S1/S2
Respiratory: Rales and Non-Labored Respirations
GI: Soft and Non Distended
Neurology: Awake, Oriented, AO x 3 and No Motor Deficits
Skin: Warm
General: Comfortable
Assessment
-
34-year-old man who presented to the emergency room with flulike symptoms for the last 6 days, also not feeling well, mildly nauseous. Found to have anion gap metabolic acidosis, increased beta hydroxybutyrate. Patient is a diabetic who is
noncompliant. Also found to have influenza positive and abnormal chest x-ray.
Diabetes ketoacidosis
Bicarbonate as low as 10
Increase beta hydroxybutyrate
Normal lactic level
Uncontrolled diabetes
Viral syndrome/bronchitis versus pneumonia.
Positive influenza A
Chest x-ray-With possible left lower lobe infiltrate versus atelectasis
Leukocytosis
Conditions present prior admission
? Type II diet-on metformin intermittently, mostly diet control per patient.
Assessment and plan:
Clinical picture suggest DKA but this patient has been a type II diabetic unclear if converted to type I diabetic.
Continue DKA protocol with insulin drip.
Every hour Accu-Cheks until anion gap is closed.
Transition to D5 and a half with KCl once blood sugars 250 or lower.
Frequent BMPs
Obtain hemoglobin A1c
Obtain C-peptide
Consult diabetes nurse practitioner
Advance diet once no longer nauseous
-
Influenza A positive-symptoms for longer than 6 days. Agree with holding Tamiflu for now
Negative COVID afebrile
Follow leukocytosis
Chest x-ray with small airspace disease in the left lower lobe atelectasis versus pneumonia
Not unreasonable to complete 5 to 7 days of doxycycline.
Continue symptomatic management, antitussives, mucolytic's etc.
-
DVT prophylaxis with Lovenox
-
Patient states that he would like to leave the hospital now. He is to go back to work his only provider at home. He was explained that at this point is critically ill with severe metabolic acidosis and requirement of IV insulin and it would be
dangerous to leave the hospital before all the metabolic abnormalities resolved.
He states that likely he will leave AGAINST MEDICAL ADVICE.
I communicated this with Dr. Pillai and they will discussed with patient
-
Critical care statement: A total of 35 minutes of critical care time was provided for this patient today. This includes management of unstable vital signs, evaluation of the patient at bedside, reviewing the patient's pertinent medical records
including ventilator settings, arterial blood gases, radiographs, microbiology, laboratory evaluations and discussion with primary team, critical care nursing, and respiratory therapy.
[2024-07-10 09:07] LABS: Glucose - Point of Care 261 mg/dl (70-99)
--- NOTE | 2024-07-10 09:32 | PTCARENOTE ---
Patient is extremely anxious, states he wants to go home. Met with Dr. Pillai, risks reviewed with patient. patient AMA paperwork signed, agreed to stay till 1500.
--- NOTE | 2024-07-10 09:57 | CM ---
CM met with pt bedside
Pt resides with his spouse and 2 y/o dtr at home
Preferred pharmacy is [facility]
He has signed AMA paperwork and plans to leave later today
He has contacted family who will transport home
Discharge Disposition- AMA, family transport
[2024-07-10 10:02] LABS: Glycohemoglobin (HgbA1c) 14.8 % (4.0-5.6)
[2024-07-10 10:19] LABS: Glucose - Point of Care 258 mg/dl (70-99)
[2024-07-10 11:18] LABS: Glucose - Point of Care 218 mg/dl (70-99)
[2024-07-10 12:09] LABS: Blood Urea Nitrogen 3 mg/dl (9-20); Calcium 8.5 mg/dl (8.4-10.2); Carbon Dioxide 15 mmol/L (22-30); Chloride 105 mmol/L (98-107); Estimated Creatinine Clearance > 125 ml/min; Glucose 221 mg/dl (70-99); Sodium 135 mmol/L (135-145); eGFR > 60.00
[2024-07-10] MEDS: VIBRAMYCIN 100 MG PO (12:15)
--- NOTE | 2024-07-10 12:20 | SUR.OPER ---
Encouraged patient to stay, that Gap is going in the correct direction but that patient has significant risks going home. encouraged patient to reach out to his PCP
[2024-07-10 12:25] LABS: Glucose - Point of Care 205 mg/dl (70-99)
[2024-07-10 12:26] LABS: Procalcitonin < 0.05 ng/ml (0.0-0.25)
[2024-07-10 13:24] LABS: Glucose - Point of Care 198 mg/dl (70-99)
--- NOTE | 2024-07-10 14:13 | PTCARENOTE ---
Patient has signed out AMA. discontinued IV lines. patient had taken off tele monitor. educated patient on dangers of going home, patient states he understands.
--- NOTE | 2024-07-10 15:07 | W.DCSUMMARY ---
Addendum entered and electronically signed by Radha Pillai MD 07/10/24 18:16:
Read, reviewed, and agree. See same day progress note for additional details. Time spent coordinating care, DC planning, review of DC plan of care with resident, transition of care, review of records in EMR, med rec, consults, notes, d/w
consultants, nursing, family, and CM = 38 minutes
Patient is only 34 years old and very likely has type 1 diabetes as opposed to type II. Hemoglobin A1c is 14.8 and certainly not controlled on oral metformin only. Patient stated that he has Lantus at home and his refrigerator.
Patient states he wished to leave hospital today but Dr. Masters/Dr. Wren/myself explained to him that it would be unsafe medically to discharge him and that he would require continued further care until he is stabilized. Patient stated 'I will
remove all of my IV lines and walk out'. Explained to patient that it would be dangerous for him as he is still on IV insulin and blood work is not within normal limits and that he could . He states that he is aware/understands that it is
unsafe to leave hospital early and he will be leaving AGAINST MEDICAL ADVICE.
Dr. Masters did call the patient at home since he left without an appropriate medication list. He was agreeable for us to discharge him on insulin. His total insulin dosage was calculated and divided in half, and he was sent on 17 units of Lantus
along with 5 units of short acting NovoLog with meals. We intentionally underdosed him since his gap was not fully closed and preferred not to have him go into a hypoglycemic coma. However, we felt giving him insulin would be better than him not
having insulin nor any treatment at all.
Original Note:
Discharge Summary
Discharge Data
Date of Admission: 07/10/24
Date of Discharge: 07/10/24
-
Pending Results: No
Hospital Course
Discharging Physician : ,
Disposition : Against Medical Advice/Home
Primary care physician : Dr. Newton Bernardo
Principal Discharge diagnosis : Diabetic ketoacidosis
Chronic Discharge diagnosis : Type 2 diabetes mellitus
Hospital Course : This is a 34-year-old male patient with past medical history of type 2 diabetes mellitus who presented to the ED with cough, fever and SOB. Chest x-ray showed left lower lobe subpleural consolidations that were consistent with
pneumonia. His blood work was notable for bicarb of 11 with anion gap of 20, beta hydroxybutyrate at 4 and glucose in the 300s. Due to the diagnosis that DKA, patient was admitted to the ICU and started on DKA protocol of insulin drip and IV
fluids. Accu-Cheks were done every hour. Globin A1c was 14. Doxycycline was continued for his postviral pneumonia. Anion gap decreased down to 15 and glucose decreased to 221. Patient stated that he wishes to leave hospital and discussions with
patient were had where he was explained that it would be medically unsafe for him to be discharged and that he would require further care with IV insulin and he could potentially without medical management. Patient stated that he was aware and
understood that it would be unsafe to leave hospital early. Patient will be leaving AGAINST MEDICAL ADVICE. Patient was called after he had left the hospital to send insulin to his pharmacy and he was agreeable.
Important imaging findings :
07/09/2024 CXR: Possible mild left lower lobe pneumonia�small subpleural airspace consolidation in the posterior basilar segment of the left lower lobe
Discharge Plan
-
Patient Disposition: Against Medical Advice
Referrals:
Newton Bernardo, DO [Family Provider] -
Prescriptions:
New
doxycycline hyclate 100 mg capsule
100 mg PO BID 10 Days Qty: 20 0RF
albuterol sulfate [Ventolin HFA] 90 mcg/actuation HFA aerosol inhaler
2 inh inhalation Q4H PRN (Reason: shortness of breath or wheezing) Qty: 6.7 0RF
insulin glargine 100 unit/mL (3 mL) insulin pen
17 unit SC QPM Qty: 15 0RF
insulin aspart U-100 [Novolog FlexPen U-100 Insulin] 100 unit/mL (3 mL) insulin pen
5 unit SC TID Qty: 15 0RF
Continued
metformin
2 tab PO DAILY
Patient Comments:
Patient does not know the dose
Held
lisinopril 20 mg Tablet
20 mg PO DAILY
Hold Instructions: discuss with your family doctor on further use of medication
Discontinued
clindamycin HCl 150 mg capsule
450 mg PO TID 10 Days Qty: 90 0RF
doxycycline hyclate 100 mg capsule
100 mg PO BID Qty: 19 0RF
Discharge Date and Time
Discharge Date/Time: 07/10/24 14:54
Print Language: SERBIAN
[2024-07-11 17:27] LABS: C-Peptide 0.4 ng/mL (0.5-3.3)
== END 2024-07-10 14:54 | disposition left against medical advice (07) | DRG 637 ==
LOC: ICU 07:34
PROVIDERS: Emergency Medicine; Nurse Practitioner Primary Care; Student in an Organized Health Care Education/Training Program; ADMITTING PHYSICIAN Internal Medicine; ATTENDING PHYSICIAN Internal Medicine; CONSULT PHYSICIAN Internal Medicine Critical Care Medicine; EMERGENCY PHYSICIAN Emergency Medicine; FAMILY PHYSICIAN Family Medicine
DX: E10.10 Type 1 diabetes mellitus with ketoacidosis without coma (principal); J10.01 Influenza due to other identified influenza virus with the same other identified influenza virus pneumonia; R05.9 Cough, unspecified; I10 Essential (primary) hypertension; E10.65 Type 1 diabetes mellitus with hyperglycemia; Z91.148 Patient's other noncompliance with medication regimen for other reason; Z79.84 Long term (current) use of oral hypoglycemic drugs; Z11.52 Encounter for screening for COVID-19; Z91.199 Patient's noncompliance with other medical treatment and regimen due to unspecified reason
CPT/HCPCS: 71046; 80048; 80053; 80061; 82010; 82805; 82962; 83036; 83605; 84145; 84681; 85025; 85610; 85730; 87070; 87502; 87811; 87880; 94640; 96361; 96365; 96366; 96375; 99291

== ENCOUNTER 2024-08-11 07:02 | Emergency (ER) | payer BC, SELFPAY ==
[2024-08-11 07:03] VITALS: BP 169/102
--- NOTE | 2024-08-11 07:19 | ED.MUSCINJ ---
HPI-Injury
General
Chief Complaint: Fall
Source: patient
Exam Limitations: none
Time Seen by Provider: 08/11/24 07:06
Nursing documentation reviewed up to this point in time: agreed with
History of Present Illness-Injury
Initial Injury comments:
34-year-old male presents emergency department after tripping over a baby gate falling face first down about 14 stairs. He is nose, complains of left upper abdominal pain and right sided rib pain.
Past History
Past History
ED Past Medical History: HTN and NIDDM
ED Past Surgical History: None
Social History
Tobacco: Non-smoker
Alcohol: None
Drug: None
Personal:
Living: with family
Review of Systems
Review of Systems
Allergies reviewed?: Yes
All Other Systems: Not applicable
Constitutional: Reports no symptoms
EENT: Reports no symptoms
Respiratory: Reports no symptoms
Cardiac: Reports no symptoms
ABD/GI: Reports abdominal pain
: Reports no symptoms
Musculoskeletal: Reports no symptoms
Skin: Reports no symptoms
Neurological: Reports no symptoms
Endocrine: Reports no symptoms
Hematologic/Lymphatic: Reports no symptoms
Psychiatric: Reports no symptoms
Phy Exam
Physical Exam
Physical Exam:
Physical Exam
General: no apparent distress, not acutely ill
Neck: supple. no meningeal signs. normal posterior pharynx
Heart: s1/s2 regular rate and rhythm, no murmur. equal radial
pulses.
HEENT: Pupils equal round reactive to light, EOMI, left-sided nosebleed, no septal hematoma,
Lungs: no acute respiratory distress. clear bilaterally
Abdomen: normal bowel sounds. not tender. no CVAT
Neuro: alert and oriented. no focal neurological deficits cranial nerves II through XII intact
Skin: no rash, nasal abrasion
Psychiatric: well kept. interactive and cooperative
Extremities: no edema. no calf tenderness. negative homans. good distal pulses
Injury Course
Orders/Labs/Results
Orders:
Orders
08/11/24 07:14
Cardiac Monitoring- Treatment ONCE
08/11/24 07:15
CT Abd/pel W Iv Cont (trauma) Urgent
Comment:
Reason For Exam: fall, LUQ pain
CT Head W/o Iv Contrast Urgent
Comment:
Reason For Exam: fall, hit face
08/11/24 07:16
IV Insert/Care/Rem.- Treatment PRN
08/11/24 07:23
Complete Blood Count/With Diff Urgent
Comprehensive Metabolic Panel Urgent
Lipase Urgent
08/11/24 08:23
Insulin Human Regular [Novolin R] 7 units IV NOW STA
08/11/24 08:24
0.9% Sodium Chloride 1000 ml [Nss] 1,000 ml IV BOLUS
08/11/24 09:08
Ribs, Left 3 View W/PA Chest CR [CR Ribs-left 3 Vw W/pa Chest] Urgent
Comment:
Reason For Exam: left side rib pain
Abnormal Lab Results
08/11/24 08/11/24
07:23 09:40
Immature Gran % 0.6 H %
(0-0.5)
Sodium 130 L mmol/L
(135-145)
Chloride 94 L mmol/L
(98-107)
Carbon Dioxide 20 L mmol/L
(22-30)
Creatinine 0.4 L mg/dL
(0.7-1.3)
Glucose 694 H* mg/dl
(70-99)
POC Glucose 246 H mg/dl
(70-99)
08/11/24 07:23
08/11/24 07:23
MDM/Problems Addressed
Differential Diagnosis Includes:
DKA intracranial hemorrhage, rib fracture, splenic laceration
MDM/Problems Addressed:
34-year-old male with fall, facial and nasal contusion, hyperglycemia. Blood sugar improved after insulin. No signs DKA. No signs intracranial hemorrhage, rib fracture, pneumothorax or intra-abdominal injury. Stable for discharge. Follow-up
with primary care
Chronic conditions affecting care: DM and HTN
Acute Exacerbation and/or Progression of Chronic Illness: DM
*Radiology
Radiology exam reviewed: radiology read reviewed (Rib x-ray no fracture or pneumothorax, CT head no acute findings, CT abdomen pelvis no acute findings.)
*Pulse Oximetry
Patient hypoxic: no
*Critical Care Note
Total Time (30-74mins, 75-104mins- exclusive of procedures): Not Applicable
Patient Management
Social determinants of health affecting care: Living situation and Strong social support
Escalation/DeEscalation of care consider admission/obs:
Admit not indicated
ED Attending Note
-
Portions of this chart may have been created with voice recognition software.� Occasional wrong word or��sound alike� substitutions may have occurred due to the inherent limitations of voice recognition software.
Discharge Plan
Departure
Patient Disposition: Home (Routine Discharge)
Date of Disposition: 08/11/24
Time of Disposition: 09:49
Patient with high blood pressure during this ER visit?: Yes
Condition: Good
Discharge Problem:
Contusion of nose, Acute hyperglycemia, Fall, Contusion of rib on left side
Instructions: Contusion (DC), Preventing falls in adults, Skin Abrasions (DC), High blood sugar in adults - ED discharge instructions
Prescriptions:
No Action
metformin
500 tab PO BID
Patient Comments:
Patient does not know the dose
albuterol sulfate [Ventolin HFA] 90 mcg/actuation HFA aerosol inhaler
2 inh inhalation Q4H PRN (Reason: shortness of breath or wheezing) Qty: 6.7 0RF
Referrals:
UNKNOWN - PT DOES,NOT KNOW [Family Provider] -
Activity Restrictions/Additional Instructions:
Your blood sugar was elevated in ED, 694. You were given insulin, which has decreased your blood sugar. Please eat and monitor your blood sugar today. Follow-up with your primary care physician. Return for any concerns.
Interventions
Interventions:
*Risk Screen - Suicide Last Done: 08/11/24 07:03
*General Assessment Last Done: 08/11/24 07:03
*Neglect/Abuse Screening Last Done: 08/11/24 07:03
*ED COVID-19 Vaccine History Last Done: 08/11/24 07:11
ED-Musculoskeletal Assessment Last Done: 08/11/24 07:11
ED- Neurological Assessment Last Done: 08/11/24 07:11
ED-Skin Assessment Last Done: 08/11/24 07:11
Discharge Date and Time
Print Language: MALDIVIAN
[2024-08-11 07:32] LABS: % Basophils 0.6 % (0-2); % Immature Granulocytes 0.6 % (0-0.5); % Lymphocytes 29.5 % (20.5-51.1); % Monocytes 8.9 % (1.7-9.3); % Neutrophils 59.4 % (42.2-75.2); Absolute Eosinophils 0.1 10^3/uL (0-0.7); Absolute Monocytes 0.6 10^3/uL (0.1-0.6); Hematocrit 44.3 % (39.0-52.0); Hemoglobin 15.1 g/dL (13.0-18.0); Mean Corp Hgb Conc. 34.1 g/dL (33.0-37.0); Mean Corpuscular Hgb 27.3 pg (27.0-31.0); Mean Corpuscular Volume 80.1 fL (80.0-94.0); Mean Platelet Volume 9.9 fL (7.4-10.4); Nucleated Red Blood Cells % 0 % (-); Platelet Count 315 10^3/uL (130-400); Red Blood Cell Count 5.53 10^6/uL (4.70-6.10); White Blood Cell Count 6.8 10^3/uL (4.8-10.8)
[2024-08-11 08:00] VITALS: BP 158/106
[2024-08-11 08:08] LABS: ALT (SGPT) 23 U/L (0-50); AST (SGOT) 23 U/L (17-59); Albumin 4.8 g/dl (3.5-5.0); Alkaline Phosphatase 98 U/L (38-126); Blood Urea Nitrogen 17 mg/dl (9-20); Calcium 9.1 mg/dl (8.4-10.2); Carbon Dioxide 20 mmol/L (22-30); Chloride 94 mmol/L (98-107); Glucose 694 mg/dl (70-99); Lipase 224 U/L (23-300); Potassium 4.5 mmol/L (3.5-5.1); Total Bilirubin 0.8 mg/dl (0.2-1.3); Total Protein 8.2 g/dl (6.3-8.2); eGFR > 60.00
[2024-08-11 08:12] VITALS: BP 158/106
[2024-08-11 08:13] LABS: Sodium 130 mmol/L (135-145)
[2024-08-11] MEDS: NOVOLIN R 7 UNITS IV (08:30)
[2024-08-11] MEDS: NSS 1000 IV (08:31)
[2024-08-11 09:22] VITALS: BP 151/105
[2024-08-11 09:41] LABS: Glucose - Point of Care 246 mg/dl (70-99)
== END 2024-08-11 10:10 | disposition home or self-care (01) ==
LOC: EMR 07:02
PROVIDERS: EMERGENCY PHYSICIAN Emergency Medicine
DX: R10.12 Left upper quadrant pain (principal); I10 Essential (primary) hypertension; E11.65 Type 2 diabetes mellitus with hyperglycemia; S00.33XA Contusion of nose, initial encounter; S20.212A Contusion of left front wall of thorax, initial encounter; W01.0XXA Fall on same level from slipping, tripping and stumbling without subsequent striking against object, initial encounter
CPT/HCPCS: 99284; 96372; 96360; 70450; 71101; 74177; 80053; 82962; 83690; 85025; Q9967

== ENCOUNTER 2024-12-11 10:45 | Emergency (ER) | payer BC, SELFPAY ==
[2024-12-11 11:02] VITALS: BP 163/98
--- NOTE | 2024-12-11 12:10 | ED.GENMED ---
History of Present Illness
General
Chief Complaint: Musculo-Skeletal Complaint
Time Seen by Provider: 12/11/24 11:45
History of Present Illness
History of Present Illness:
34-year-old male with history of type 2 diabetes presents to the emergency department for evaluation of bilateral foot discomfort, described as hot needles or tingling gradually worsening for the past several months. He noticed that after falling
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 He has difficulty standing for long periods due to increasing pain and having difficulty sleeping
secondary to pain.
Past History
Past History
ED Past Medical History: HTN and NIDDM
ED Past Surgical History: None
Social History
Tobacco: Non-smoker
Alcohol: None
Drug: None
Personal:
Living: with family
Review of Systems
Review of Systems
Allergies reviewed?: Yes
All Other Systems: ROS reviewed and negative except as documented in HPI and ROS
Phy Exam
Physical Exam
Physical Exam:
GEN: Well appearing, NAD, WDWN
HEENT: Oral mucosa moist, no scleral icterus
Cardiac: Regular rate
Lung: No respiratory distress, no tachypnea
MSK: No gross deformity or injuries. Ecchymosis and swelling to the right great toe compatible with known fracture
Skin: Good color, no pallor or jaundice, no rashes
Neuro: AO x3, moves all extremities freely. Hypersensitive to palpation of bilateral feet
Psych: Calm, cooperative
Course
Vital Signs
Initial and Last Documented VS:
Initial Vital Signs
Temp Pulse Resp BP Pulse Ox
98.0 F 110 20 163/98 99
12/11/24 11:02 12/11/24 11:02 12/11/24 11:02 12/11/24 11:02 12/11/24 11:02
Last Documented Vital Signs
Temp Pulse Resp BP Pulse Ox
98.0 F 110 20 163/98 99
12/11/24 11:02 12/11/24 11:02 12/11/24 11:02 12/11/24 11:02 12/11/24 11:02
MDM/Problems Addressed
MDM/Problems Addressed:
Clinically highly suspicious for diabetic neuropathy, will prescribe gabapentin and recommend ALA and L serine supplementation as well as podiatry follow-up
*Critical Care Note
Total Time (30-74mins, 75-104mins- exclusive of procedures): Not Applicable
ED Attending Note
-
Portions of this chart may have been created with voice recognition software.� Occasional wrong word or��sound alike� substitutions may have occurred due to the inherent limitations of voice recognition software.
Discharge Plan
Departure
Patient Disposition: Home (Routine Discharge)
Date of Disposition: 12/11/24
Time of Disposition: 12:12
Patient with high blood pressure during this ER visit?: No
Discharge Problem:
Diabetic neuropathy
Instructions: Nerve damage caused by diabetes
Prescriptions:
New
gabapentin 300 mg capsule
300 mg PO TID Qty: 60 0RF
No Action
metformin
500 tab PO BID
Patient Comments:
Patient does not know the dose
albuterol sulfate [Ventolin HFA] 90 mcg/actuation HFA aerosol inhaler
2 inh inhalation Q4H PRN (Reason: shortness of breath or wheezing) Qty: 6.7 0RF
Stand Alone Forms: Return to Work
Activity Restrictions/Additional Instructions:
Try [id number] supplements L-Serine and ALA (alpha lipoic acid) as these may help to delay the progression of neurpathy
Interventions
Interventions:
*General Assessment Last Done: 12/11/24 11:02
*Nursing Disposition Last Done: 12/11/24 12:41
Discharge Date and Time
Discharge Date/Time: 12/11/24 12:41
Print Language: [place]
== END 2024-12-11 12:41 | disposition home or self-care (01) ==
LOC: EMR 10:45
PROVIDERS: EMERGENCY PHYSICIAN Emergency Medicine; FAMILY PHYSICIAN Family Medicine
DX: E11.40 Type 2 diabetes mellitus with diabetic neuropathy, unspecified (principal); I10 Essential (primary) hypertension; Z87.81 Personal history of (healed) traumatic fracture
CPT/HCPCS: 99282

== ENCOUNTER 2024-12-27 18:24 | Emergency (ER) | payer BC, SELFPAY ==
[2024-12-27 18:27] VITALS: BP 173/93
== END 2024-12-27 19:20 ==
LOC: EMR 18:24
DX: R22.40 Localized swelling, mass and lump, unspecified lower limb (principal)